=== PATIENT | male | born 1965 | race Caucasian/White ===

== ENCOUNTER 2021-11-04 08:27 | Outpatient (RCR) | payer BC ==
[~2021-11-04 08:27] MED LIST: CEPHALEXIN500 M1 PO
== END 2021-11-06 | disposition home or self-care (01) ==
LOC: PT.GENESIS
DX: M25.561 Pain in right knee (principal)

== ENCOUNTER 2021-11-12 08:00 | Outpatient (RCR) | payer BC | END 2021-12-07 | disposition home or self-care (01) | LOC: PT.GENESIS | DX: M25.561 Pain in right knee (principal) ==